=== PATIENT | female | born 1965 | race African-American/Black ===

== ENCOUNTER 2017-03-20 13:00 | Emergency (ER) | payer OTHER ==
[~2017-03-20] VITALS: Ht 167.6 cm; Wt 71.7 kg
[2017-03-20 13:10] VITALS: BP 113/77
== END 2017-03-20 15:15 | disposition home or self-care (01) ==
LOC: ER 13:00
DX: J02.9 Acute pharyngitis, unspecified (principal)

== ENCOUNTER 2020-10-28 21:53 | Emergency (ER) | payer MEDICAID, OTHER ==
[~2020-10-28] VITALS: Ht 165.1 cm; Wt 83.0 kg
[2020-10-28] MEDS ORDERED: TETANUS-DIPTH-ACEL PERTUSSIS 0.5ML SYR Tdap IM ONE (23:00)
[2020-10-28] MEDS ORDERED: ONDANSETRON HCL 4 MG/2 ML VIAL IV ONE (23:00)
[2020-10-28] MEDS ORDERED: MORPHINE SULFATE 4 MG/ML SYR/VIAL IV ONE (23:00)
[2020-10-28] MEDS ORDERED: MORPHINE SULFATE 4 MG/ML SYR/VIAL ONE (23:01)
[2020-10-28] MEDS ORDERED: ONDANSETRON HCL 4 MG/2 ML VIAL ONE (23:01)
[2020-10-28] MEDS ORDERED: SILVER SULFADIAZINE 1 % TOPICAL CREAM 50GM TOP ONE (23:31)
[2020-10-29 00:54] VITALS: BP 141/81
[2020-10-29] MEDS ORDERED: SILVER SULFADIAZINE 1 % TOPICAL CREAM 50GM TOP ONE (01:30)
== END 2020-10-29 01:06 | disposition home or self-care (01) ==
LOC: ER 22:02
DX: S06.9X0A Unspecified intracranial injury without loss of consciousness, initial encounter (principal); X58.XXXA Exposure to other specified factors, initial encounter; Y93.89 Activity, other specified; Y92.89 Other specified places as the place of occurrence of the external cause; Y99.8 Other external cause status
CPT/HCPCS: 16020; 90471; 90715; 96374; 96375; 99284; J2270; J2405; J7030

== ENCOUNTER 2024-10-06 18:23 | Inpatient (IN) | payer MEDICAID ==
[~2024-10-06] VITALS: Ht 167.6 cm; Wt 107.0 kg
[2024-10-06] MEDS: MORPHINE SULFATE INJ 2 MG/ml SYRG IV ONE (18:45)
[2024-10-06] MEDS ORDERED: DexAMETHasone INJECTION 10 MG in D5W 5% 50 ML IV ONE (18:45)
[2024-10-06] MEDS: SODIUM CHLOR 0.9% PF (SALINE LOCK) 10ML VIAL/SYR IV ONE (18:45)
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
[2024-10-06 19:04] VITALS: RESP 15; O2SAT 93
[2024-10-06 19:15] LABS: Basophils # (auto) 0.1 10 ^3/uL (0-0.2); Basophils % (auto) 0.9 % (0.0-2.0); Eosinophils # (auto) 0.2 10 ^3/uL (0-0.8); Eosinophils % (auto) 3.2 % (0.0-7.0); Hematocrit 45.3 % (36.0-46.0); Hemoglobin 15.2 g/dL (12.2-16.2); Lymphocytes % (auto) 33.5 % (10.0-50.0); Mean Corpuscular Hemoglobin 32.1 pg (28.0-32.0); Mean Corpuscular Hgb Conc. 33.6 g/dL (32.0-36.0); Mean Corpuscular Volume 95.6 fL (80.0-100.0); Monocytes # (auto) 0.5 10 ^3/uL (0-1.3); Monocytes % (auto) 7.8 % (0.0-12.0); Neutrophils # (auto) 3.2 10 ^3/uL (1.6-8.6); Neutrophils % (auto) 54.6 % (37.0-80.0); Nucleated Red Blood Cells % 0.1 %; Platelet Count (auto) 177 10^3/uL (140-450); Red Blood Cells 4.74 10^6/uL (4.0-5.20); Red Cell Distribution Width 13.7 % (11.8-14.3); White Blood Cell 5.9 10^3/uL (4.4-10.8)
[2024-10-06 19:22] LABS: Base Excess -2.4 mmol/L (-2.0-3.0)
[2024-10-06] MEDS: ALBUTEROL SULF 2.5 MG/0.5ML(0.5%) NEB SOLN NEB ONE (19:26)
[2024-10-06 19:33] LABS: Alanine Aminotransferase 27 U/L (7-40); Albumin 4.5 g/dL (3.2-4.8); Alkaline Phosphatase 80 U/L (46-116); Anion Gap 7 (5-15); Aspartate Aminotransferase 29 U/L (13-40); BUN/Creatinine Ratio 11.1 (10.0-20.0); Blood Urea Nitrogen 10 mg/dL (9-23); Calcium 9.7 mg/dL (8.7-10.4); Carbon Dioxide 26 mmol/L (20-31); Chloride 106 mmol/L (98-107); Glucose 94 mg/dL (74-106); Sodium 139 mmol/L (136-145)
[2024-10-06 19:34] LABS: Total Protein 7.2 g/dL (5.7-8.2)
[2024-10-06 19:35] LABS: Bilirubin, Total 0.3 mg/dL (0.2-1.0)
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
[2024-10-06] MEDS: DexAMETHasone SOD PHOS 10MG/1ML VIAL INJ IV ONE (19:58)
[2024-10-06] MEDS: ONDANSETRON HCL 4 MG/2 ML VIAL IV ONE (20:27)
[2024-10-06] MEDS: SODIUM CHLORIDE 0.9% 1,000 ML IV SCH (20:30)
[2024-10-06] MEDS ORDERED: ALBUTEROL SULF 2.5 MG/0.5ML(0.5%) NEB SOLN NEB PRN (20:30)
[2024-10-06] MEDS ORDERED: ONDANSETRON HCL 4 MG/2 ML VIAL IV PRN (20:30)
[2024-10-06] MEDS ORDERED: HYDROcodone-ACET 5/325MG TAB PO PRN (20:30)
[2024-10-06] MEDS ORDERED: MORPHINE SULFATE INJ 2 MG/ml SYRG IV PRN ×2 (20:30→22:00)
[2024-10-06] MEDS ORDERED: ACETAMINOPHEN 325 MG TAB PO PRN (20:30)
[2024-10-06] MEDS ORDERED: DOCUSATE SOD 100 MG CAP PO PRN (20:30)
[2024-10-06] MEDS ORDERED: IPRATROPIUM BROM 0.5 MG/2.5ML INH SOL NEB PRN (20:30)
[2024-10-06 20:54] VITALS: BP 108/68; PULSE 79; RESP 18; TEMP 97.9; O2SAT 97
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
[2024-10-06] MEDS ORDERED: NITROGLYCERIN 0.4 MG SL TAB SL PRN (22:00)
[2024-10-06 22:12] VITALS: PULSE 83; RESP 19; O2SAT 98
[2024-10-07] VITALS (9 sets, daily range): BP systolic 105–129; BP diastolic 53–76; PULSE 66–87; RESP 14–81; TEMP 97.2–98.5; O2SAT 93–97
[2024-10-07 08:09] LABS: Basophils # (auto) 0 10 ^3/uL (0-0.2); Basophils % (auto) 0.4 % (0.0-2.0); Eosinophils # (auto) 0 10 ^3/uL (0-0.8); Eosinophils % (auto) 0.5 % (0.0-7.0); Hematocrit 45.3 % (36.0-46.0); Hemoglobin 15.4 g/dL (12.2-16.2); Lymphocytes # (auto) 0.8 10 ^3/uL (0.4-5.4); Lymphocytes % (auto) 12.1 % (10.0-50.0); Mean Corpuscular Hemoglobin 32.4 pg (28.0-32.0); Mean Corpuscular Hgb Conc. 34.1 g/dL (32.0-36.0); Monocytes # (auto) 0.1 10 ^3/uL (0-1.3); Monocytes % (auto) 1.3 % (0.0-12.0); Neutrophils # (auto) 5.5 10 ^3/uL (1.6-8.6); Neutrophils % (auto) 85.7 % (37.0-80.0); Nucleated Red Blood Cells % 0.1 %; Platelet Count (auto) 184 10^3/uL (140-450); Red Blood Cells 4.77 10^6/uL (4.0-5.20); Red Cell Distribution Width 13.5 % (11.8-14.3); White Blood Cell 6.4 10^3/uL (4.4-10.8)
[2024-10-07 08:31] LABS: Alanine Aminotransferase 24 U/L (7-40); Albumin 4.4 g/dL (3.2-4.8); Alkaline Phosphatase 82 U/L (46-116); Anion Gap 6 (5-15); Aspartate Aminotransferase 25 U/L (13-40); BUN/Creatinine Ratio 13.3 (10.0-20.0); Blood Urea Nitrogen 11 mg/dL (9-23); Calcium 9.3 mg/dL (8.7-10.4); Carbon Dioxide 24 mmol/L (20-31); Potassium 4.1 mmol/L (3.5-5.1); Sodium 139 mmol/L (136-145)
[2024-10-07 08:32] LABS: Bilirubin, Total 0.3 mg/dL (0.2-1.0); Total Protein 7.1 g/dL (5.7-8.2)
[2024-10-07 08:35] LABS: Chloride 109 mmol/L (98-107); Glucose 135 mg/dL (74-106)
[2024-10-07] MEDS: FAMOTIDINE (10MG/ML) 2ML VL IV SCH (10:09)
[2024-10-07] MEDS: DexAMETHasone SOD PHOS 10MG/1ML VIAL INJ IV SCH (10:09)
== END 2024-10-07 17:31 | disposition home or self-care (01) | DRG 816 ==
LOC: EDUNIT# 18:23 → EDBD 18:23 → ER 18:23 → TELE 21:46 → TELE-WESTW 10-07 02:17
PROVIDERS: ADMIT Nurse Practitioner Family; ATTEND Nurse Practitioner Family
DX: T59.811A Toxic effect of smoke, accidental (unintentional), initial encounter (principal); F41.9 Anxiety disorder, unspecified; R06.03 Acute respiratory distress; Y92.098 Other place in other non-institutional residence as the place of occurrence of the external cause
CPT/HCPCS: 36415; 36600; 71250; 80053; 82805; 85025; 94640; G0378; J1100; J3490; J7060

== ENCOUNTER 2025-05-07 22:58 | Inpatient (IN) | payer MEDICAID ==
[~2025-05-07] VITALS: Ht 167.6 cm; Wt 114.1 kg
[2025-05-07] MEDS: SODIUM CHLORIDE 0.9% 1,000 ML IV ONE (23:28)
[2025-05-07] MEDS: dilTIAZem 25 MG/5 ML VIAL IV ONE (23:28)
--- NOTE | 2025-05-07 23:47 | ED.PDOC ---
History of Present Illness HPI Comments HPI: This is a 60 year-old female, BIB EMS, for chest pain and possible syncopal episode at home. Per EMS, pt was found on the couch, poor historian, with one episode of emesis prior to arrival. Per EMS, patient was uncooperative on scene, but was able to provide an EKG which showed Afib RVR with HR in the 160s. Per EMS, patient has a 6-pack of beer today. On arrival to the ED, pt is A&OX4, extremely poor historian. Patient denies any PMHx. Pt was seen at the ED yesterday for back pain and was given Toradol Injection IM. No history of atrial fibrillation. No past medical history whatsoever. Patient does not go to the doctor. Past Medical History: Denies Past Surgical History: Denies Social History: Denies ETOH, smoking, and drug use. Medications: Denies Allergies: Coconut HPI: Poor Historian. REVIEW OF SYSTEMS: CONSTITUTIONAL: Denies acute: fever, diaphoresis, chills, HEAD: Denies acute: headache, photophobia Eyes: Denies acute: Double vision, vision loss, eye pain, eye discharge. EARS: Denies acute: tinnitus, hearing loss, ear discharge, ear pain, THROAT: Denies acute: sore throat, swelling, difficulty swallowing , pain with swallowing, change in voice. NECK: Denies acute: neck pain, neck swelling, stiff neck. HEART: Denies acute : LUNGS: Denies acute: SOB, wheezing, cough, hemoptysis ABDOMEN: Denies acute: abdominal pain, diarrhea, melena , hematemesis, hematochezia SKIN: Denies acute: rash, redness, lesions, itchiness. EXTREMITIES: Denies acute: calf pain, numbness, tingling, weakness, denies pain in extremity. Denies acute: Low back pain. Neuro: Denies acute: focal neurological deficit, motor or sensory focal neurological deficit, tremors, seizure like activity, confusion, change in mental status, loss of bowel or bladder function, cauda equina like symptoms. : Denies acute: dysuria, hematuria, flank pain, increase in urinary frequency. PSYCH: Denies acute: hallucination, suicidal ideation, homicidal ideation. FEMALE: Denies acute: abnormal vaginal bleeding, foul odor, unusual discharge. PHYSICAL EXAM: General: ----moderate----acute distress, awake and alert. Head: normocephalic, atraumatic. Neck: supple, trachea is midline, no swelling. Throat: Normal phonation. Eyes:, no erythema, no purulent discharge, no proptosis, no icterus. Heart: Irregular rate and rhythm consistent with atrial fibrillation with RVR, no significant murmur appreciated. Lungs: no apparent respiratory distress, Able to speak in full sentences. No wheezing, no rhonchi, no crackles. No stridors Clear to auscultation bilaterally. Abdomen: non tender to palpation, non distended, soft, no guarding, no rebound, + bowel sounds. Neuro: Awake, Alert, oriented to name, self, situation, follows commands GCS=15. Speech is normal. Skin: no petechia, no purpura, no cyanosis, non-pale, not jaundice. Lower extremities: --no - Pitting edema no deformity, no focal swelling, no calf TTP. Makes eye contact. moves all four extremities. Face: no apparent facial droop. ED COURSE: DISCLAIMER: This medical document was created using an electronic medical record system with voice recognition software and computerized dictation system. Although this document has been carefully reviewed, there might still be some phonetic and typographical errors. Occasional wrong-word or "sound-alike" substitutions may have occurred due to the inherent limitations of voice recognition software. These areas are purely typographical due to imperfections of the software ree yepez and do not reflect any compromise in the patient's medical care. Please read the chart carefully and recognize, using context, where these substitutions have occurred. Chief Complaint: Chest Pain Time Seen by MD: 23:43 Primary Care Provider: [facility] Reviewed Notes: Nurses Notes, Medications, Allergies Allergies: Coded Allergies: NO KNOWN ALLERGIES (Unverified , 10/28/20) Home Meds No Active Prescriptions or Reported Meds Information Source: Patient Mode of Arrival: EMS Severity: Moderate Duration: Since onset Physical Exam General Appearance: Other (per hpi) HEENT: Other (per hpi) Neck: Other (per hpi) Respiratory: Other (per hpi) Cardiovascular: Other (per hpi) Breast Exam: Other (per hpi) Gastrointestinal: Other (per hpi) Genitalia: Other (per hpi) Pelvic: Other (per hpi) Rectal: Other (per hpi) Extremities: Other (per hpi) Neurologic: Other (per hpi) Cerebellar Function: Other (per hpi) Reflexes: Other (per hpi) Skin: Other (per hpi) Lymphatic: Other (per hpi) Was a procedure done? Was a procedure done?: No EKG EKG : Pulse Rate (adult): 75 [place]: Normal Cardiac Rhythm: Afib Block: None Hypertrophy: None ST: Normal Differential Dx Considerations may include: Ddx include but not limitied to gastritis, musculoskeletal pain, radiculopathy, atypical chest pain, dissection, aneurysm, ACS, unstable angina, hiatal hernia, GERD, anxiety, costochondritis, PE, pneumothroax, neoplasm, cardiac ischemia, drug abuse, anemia. X-Ray, Labs, Meds, VS Vital Signs Date Time Temp Pulse Resp B/P (MAP) Pulse Ox O2 Delivery O2 Flow Rate FiO2 05/08/25 02:16 75 05/08/25 02:00 78 21 93/63 (73) 95 05/08/25 02:00 93/63 05/08/25 01:52 75 05/08/25 01:30 105/66 05/08/25 01:30 111 17 105/66 (79) 97 05/08/25 01:00 90/64 05/08/25 01:00 87 16 90/64 (73) 94 05/08/25 00:30 116 19 91/57 (68) 90 05/08/25 00:30 91/57 05/08/25 00:02 161 05/08/25 00:00 141 27 91/64 (73) 90 05/08/25 00:00 85 05/07/25 23:59 131 05/07/25 23:13 149 28 100/67 (78) 92 05/07/25 23:11 97.4 166 26 107/60 97 97.4 05/07/25 23:10 Nasal Cannula* 3 32 05/07/25 23:03 148 05/07/25 00:00 91/64 Lab Test 05/08/25 02:15 05/08/25 01:35 05/08/25 01:23 05/08/25 00:22 Range/Units Troponin I High Sensitivity 478 *H 71 *H </=34 ng/L B-Type Natriuretic Peptide 116.92 0-100 pg/mL Lactic Acid Level 5.0 *H 0.4-2.0 mmol/L Test 05/07/25 23:22 Range/Units White Blood Count 10.6 4.4-10.8 10^3/uL Red Blood Count 4.43 4.0-5.20 10^6/uL Hemoglobin 14.6 12.2-16.2 g/dL Hematocrit 42.6 36.0-46.0 % Mean Corpuscular Volume 96.3 80.0-100.0 fL Mean Corpuscular Hemoglobin 32.9 H 28.0-32.0 pg Mean Corpuscular Hemoglobin Concent 34.2 32.0-36.0 g/dL Red Cell Distribution Width 14.5 H 11.8-14.3 % Platelet Count 189 140-450 10^3/uL Mean Platelet Volume 10.0 6.9-10.8 fL Neutrophils (%) (Auto) 50.2 37.0-80.0 % Lymphocytes (%) (Auto) 42.4 10.0-50.0 % Monocytes (%) (Auto) 6.3 0.0-12.0 % Eosinophils (%) (Auto) 0.7 0.0-7.0 % Basophils (%) (Auto) 0.4 0.0-2.0 % Neutrophils # (Auto) 5.3 1.6-8.6 10 ^3/uL Lymphocytes # (Auto) 4.5 0.4-5.4 10 ^3/uL Monocytes # (Auto) 0.7 0-1.3 10 ^3/uL Eosinophils # (Auto) 0.1 0-0.8 10 ^3/uL Basophils # (Auto) 0 0-0.2 10 ^3/uL Nucleated Red Blood Cells 0.1 % Sodium Level 143 136-145 mmol/L Potassium Level 2.9 L 3.5-5.1 mmol/L Chloride Level 112 H 98-107 mmol/L Carbon Dioxide Level 16 L 20-31 mmol/L Anion Gap 15 5-15 Blood Urea Nitrogen 11 9-23 mg/dL Creatinine 0.93 0.550-1.02 mg/dL Glomerular Filtration Rate Calc 70 >90 mL/min BUN/Creatinine Ratio 11.8 10.0-20.0 Serum Glucose 134 H 74-106 mg/dL Lactic Acid Level 5.3 *H 0.4-2.0 mmol/L Calcium Level 8.5 L 8.7-10.4 mg/dL Magnesium Level 2.0 1.6-2.6 mg/dL Total Bilirubin 0.3 0.2-1.0 mg/dL Aspartate Amino Transferase (AST) 249 H 13-40 U/L Alanine Aminotransferase (ALT) 136 H 7-40 U/L Alkaline Phosphatase 74 46-116 U/L Troponin I High Sensitivity 26 </=34 ng/L B-Type Natriuretic Peptide 206.33 0-100 pg/mL Total Protein 6.8 5.7-8.2 g/dL Albumin 4.1 3.2-4.8 g/dL Plasma/Serum Blood Alcohol 69.0 H <10 mg/dL Current Medications Medications (Trade) Dose Ordered Sig/Deacon Route Start Time Stop Time Status Last Admin Sodium Chloride 1,000 ml @ 1,000 mls/hr Q1H ONCE IV 05/07/25 23:15 05/08/25 00:14 DC 05/07/25 23:28 Diltiazem HCl (Cardizem Injection) 10 mg ONCE ONCE IV 05/07/25 23:15 05/07/25 23:17 DC 05/07/25 23:28 Diltiazem HCl 125 ml @ 5 mls/hr Q24H ONCE IV 05/07/25 23:45 05/08/25 23:44 05/07/25 00:00 Ondansetron HCl (Zofran) 4 mg ONCE ONCE IV 05/07/25 23:45 05/07/25 23:46 DC 05/08/25 00:06 Sodium Chloride 1,000 ml @ 1,000 mls/hr Q1H ONCE IV 05/08/25 00:15 05/08/25 01:14 DC 05/08/25 00:15 Potassium Chloride (Klor-Con Tablet) 40 meq ONCE ONCE PO 05/08/25 01:00 05/08/25 01:17 DC 05/08/25 01:27 Aspirin (Ecotrin Enteric Coated Tablet) 325 mg ONCE ONCE PO 05/08/25 01:15 05/08/25 01:17 DC 05/08/25 01:27 [facility] [id number] [facility] [address] Ph: [phone] DIAGNOSTIC IMAGING Diagnostic Imaging Report : [id number] Signed PATIENT: REX HERNANDEZ LACCT: [id number] UNIT: [id number] : 1965 LOC: ER ROOM / BED: / AGE / SEX: 60 / F ADM STATUS: REG ER SERVICE 2350 ORDERING PHYSICIAN: MARQUIS SPENCER DO PROCEDURE(s): CXRP - CHEST PORTABLE REASON: cp ORDER NUMBER(s): [id number], ACCESSION NUMBER(s): [id number] CHEST RADIOGRAPH Indication: cp Technique: Single frontal view of the chest was obtained COMPARISON: CT CHEST WITHOUT CONTRAST on DOS: 10/06/24 FINDINGS: Lines and Tubes: None Lungs: Diffuse increased prominence of the pulmonary vasculature and interstitium. Mild bibasilar atelectasis. No evidence of focal consolidation. Pleura: No effusion. No pneumothorax. Cardiomediastinal contours: Unremarkable Bones: Unremarkable IMPRESSION: 1. Congestive-type pattern. Images Reviewed?: Images reviewed and evaluated by me Time of 1ST Reevaluation: 23:46 Reevaluation 1ST: Unchanged Time of 2ND Reevaluation: 01:21 Reevaluation 2ND: Improved Patient Education/Counseling: Diagnosis, Treatment Family Education/Counseling: No Family Present Medical Screening: No EMC Exist At This Time Comments MDM: patient presented with the above HPI.--chest pain/possible syncope/atrial fibrillation with RVR---workup was initiated. patient was found with the above mentioned diagnosis. the following medications were ordered: please refer to order lists of meds and tests obtained by myself Dr. Spencer. Patient ED course and VS have been stabilized. Patient has been reassessed in the ED and remained in a stable condition. Pertinent incidental findings were discussed with the patient and/or family. Patient/family voices understanding and is agreeable with plan. Patient has been observed in the ED adequate length of time to insure improvement/stability. Escalation of care considered: Consideration of escalation to observation or admission Patient was ADMITTED to the medicine team for further evaluation and treatment of their presentation. All the reports of any imaging studies that were ordered by myself were reviewed by myself. SEPSIS Sepsis Screen Date sepsis recognized/suspect: May 07, 2025 Time Sepsis recognized/suspect: 2299 Recent Procedure: No On Antibiotic Therapy: No Respiratory Rate >20: Yes Heart Rate >90: Yes Temp<36 C (96.8 F) or >38.3 C: No SBP <90 or MAP <65 mmHG: No New Acute Mental Status Change: No Is the patient on CPAP, BIPAP,: No Physician Orders Electrocardigram (05/07/25 23:09) Electrocardigram (05/08/25 02:09) Human Resources Assistant (05/07/25 ) Diltiazem 125mg/125ml Bag Kit (Cardizem) (05/07/25 23:45) Chest Portable (05/07/25 23:50) Vital Signs Date Time Temp Pulse Resp B/P (MAP) Pulse Ox O2 Delivery O2 Flow Rate FiO2 05/08/25 02:16 75 05/08/25 02:00 78 21 93/63 (73) 95 05/08/25 02:00 93/63 05/08/25 01:52 75 05/08/25 01:30 105/66 05/08/25 01:30 111 17 105/66 (79) 97 05/08/25 01:00 90/64 05/08/25 01:00 87 16 90/64 (73) 94 05/08/25 00:30 116 19 91/57 (68) 90 05/08/25 00:30 91/57 05/08/25 00:02 161 05/08/25 00:00 141 27 91/64 (73) 90 05/08/25 00:00 85 05/07/25 23:59 131 05/07/25 23:13 149 28 100/67 (78) 92 05/07/25 23:11 97.4 166 26 107/60 97 97.4 05/07/25 23:10 Nasal Cannula* 3 32 05/07/25 23:03 148 05/07/25 00:00 91/64 Laboratory Tests Test 05/07/25 23:22 05/08/25 01:23 Lactic Acid Level 5.3 mmol/L (0.4-2.0) *H 5.0 mmol/L (0.4-2.0) *H White Blood Count 10.6 10^3/uL (4.4-10.8) Medications Medications Dose Ordered Sig/Deacon Route Start Time Stop Time Status Last Admin Dose Admin Aspirin 325 mg ONCE ONCE PO 05/08/25 01:15 05/08/25 01:17 DC 05/08/25 01:27 Diltiazem HCl 10 mg ONCE ONCE IV 05/07/25 23:15 05/07/25 23:17 DC 05/07/25 23:28 Diltiazem HCl 125 ml @ 5 mls/hr Q24H ONCE IV 05/07/25 23:45 05/08/25 23:44 05/07/25 00:00 Ondansetron HCl 4 mg ONCE ONCE IV 05/07/25 23:45 05/07/25 23:46 FL 05/08/25 00:06 Potassium Chloride 40 meq ONCE ONCE PO 05/08/25 01:00 05/08/25 01:17 DC 05/08/25 01:27 Sodium Chloride 1,000 ml @ 1,000 mls/hr Q1H ONCE IV 05/08/25 00:15 05/08/25 01:14 DC 05/08/25 00:15 Sodium Chloride 1,000 ml @ 1,000 mls/hr Q1H ONCE IV 05/07/25 23:15 05/08/25 00:14 FL 05/07/25 23:28 Departure 1 Departure Time of Disposition: 00:42 Impression: Primary Impression: Chest pain Additional Impressions: Atrial fibrillation with RVR Elevated lactic acid level Elevated LFTs Elevated troponin Hypokalemia Alcohol abuse Disposition: 09 ADMITTED INPATIENT Admit to: Tele Condition: Guarded e-Prescriptions No Active Prescriptions or Reported Meds Discharged With: Self Critical Care Note Critical Care Time?: Yes (1 hr-critical care time only) I personally scribed for MARQUIS SPENCER DO ([email or web address]) on 05/07/25 at 23:47. Electronically submitted by Kiara Monique ([employer]). I personally scribed for MARQUIS SPENCER DO ([email or web address]) on 05/07/25 at 23:47. Electronically submitted by Kiara Monique ([employer]). I personally scribed for MARQUIS SPENCER DO ([email or web address]) on 05/08/25 at 00:02. Electronically submitted by Kiara Monique ([employer]). I personally scribed for MARQUIS SPENCER DO ([facility]) on 05/08/25 at 00:39. Electronically submitted by Kiara Monique ([email or web address]). I personally scribed for MARQUIS SPENCER DO ([email or web address]) on 05/08/25 at 01:26. Electronically submitted by Kiara Monique ([employer]). I personally scribed for MARQUIS SPENCER DO ([email or web address]) on 05/08/25 at 02:16. Electronically submitted by Kiara Monique ([employer]). I personally scribed for MARQUIS SPENCER DO ([email or web address]) on 05/08/25 at 03:41. Electronically submitted by Kiara Monique ([employer]). MARQUIS SPENCER DO May 07, 2025 23:47
[2025-05-07 23:54] LABS: Hematocrit 42.6 % (36.0-46.0); Hemoglobin 14.6 g/dL (12.2-16.2); Mean Corpuscular Hemoglobin 32.9 pg (28.0-32.0); Mean Corpuscular Volume 96.3 fL (80.0-100.0); Nucleated Red Blood Cells % 0.1 %
[2025-05-08 00:03] LABS: Albumin 4.1 g/dL (3.2-4.8); Alkaline Phosphatase 74 U/L (46-116); Anion Gap 15 (5-15); BUN/Creatinine Ratio 11.8 (10.0-20.0); Blood Urea Nitrogen 11 mg/dL (9-23); Magnesium 2.0 mg/dL (1.6-2.6); Sodium 143 mmol/L (136-145); Total Protein 6.8 g/dL (5.7-8.2)
[2025-05-08 00:04] LABS: Bilirubin, Total 0.3 mg/dL (0.2-1.0)
[2025-05-08] MEDS: ONDANSETRON HCL 4 MG/2 ML VIAL IV ONE (00:06)
[2025-05-08 00:07] LABS: Lactic Acid w/Reflex 5.3 mmol/L (0.4-2.0)
[2025-05-08 00:10] LABS: Alanine Aminotransferase 136 U/L (7-40); Calcium 8.5 mg/dL (8.7-10.4); Carbon Dioxide 16 mmol/L (20-31); Chloride 112 mmol/L (98-107); Glucose 134 mg/dL (74-106); Potassium 2.9 mmol/L (3.5-5.1)
[2025-05-08] MEDS: SODIUM CHLORIDE 0.9% 1,000 ML IV ONE (00:15)
--- NOTE | 2025-05-08 00:25 | DVH ---
CHEST RADIOGRAPH Indication: cp Technique: Single frontal view of the chest was obtained COMPARISON: CT CHEST WITHOUT CONTRAST on DOS: 10/06/24 FINDINGS: Lines and Tubes: None Lungs: Diffuse increased prominence of the pulmonary vasculature and interstitium. Mild bibasilar ate lectasis. No evidence of focal consolidation. Pleura: No effusion. No pneumothorax. Cardiomediastinal contours: Unremarkable Bones: Unremarkable IMPRESSION: 1. Congestive-type pattern.
[2025-05-08] MEDS: POTASSIUM CHL 20 Meq TABLET PO ONE (01:27)
[2025-05-08] MEDS: ASPirin-EC 325mg tab PO ONE (01:27)
--- NOTE | 2025-05-08 01:54 | ECG ---
[facility] Test Date: 2025-05-08 Test Time: 01:52:42 Pat Name: REX HERNANDEZ Department: Room: 0214T Gender: F City Supervisor: LENNY : 1965 Requested By: EMERGENCY EMERGENCY Order Number: [id number] Reading MD: Jaun Pagan Measurements Intervals [place] Rate: 75 P: 0 ME: 0 QRS: 50 QRSD: 92 T: 15 QT: 407 QTc: 455 Interpretive Statements Atrial fibrillation RSR' in V1 or V2, right VCD or RVH Left ventricular hypertrophy Electronically Signed On 05-14-2025 19:06:37 PDT by Jaun Pagan Please click the below link to view image of tracing.
[2025-05-08] MEDS ORDERED: ONDANSETRON HCL 4 MG/2 ML VIAL IV PRN (02:30)
[2025-05-08] MEDS ORDERED: MORPHINE SULFATE INJ 2 MG/ml SYRG IV PRN (02:30)
[2025-05-08] MEDS ORDERED: NITROGLYCERIN 0.4 MG SL TAB SL PRN (02:30)
[2025-05-08 03:24] LABS: Amphetamine Screen, Urine Neg (NEGATIVE); Barbiturate Scree,Urine Neg (NEGATIVE); Benzodiazephine Screen, Urine Neg (NEGATIVE); Cannabinoid Screen, Urine Pos (NEGATIVE); Cocaine Screen, Urine Neg (NEGATIVE); Opiate Scree,Urine Neg (NEGATIVE); Phencyclidine Screen, Urine Neg (NEGATIVE)
[2025-05-08 03:26] LABS: Urine Protein, UAD Negative (Negative)
--- NOTE | 2025-05-08 05:13 | DVHHP2 ---
History of Present Illness Reason for Visit: Chest pain History of Present Illness 60-year-old female presents for evaluation of chest pain. Patient reports having a possible syncopal episode at home witnessed by her family. She states that subsequently she developed chest pain. On arrival patient was noted to be in AFib with RVR and was started on diltiazem drip. Currently rate controlled. Denies shortness or breath. No headache or blurred vision. Past Medical History Denies Past Surgical History Denies Family History Noncontributory Smoke: No ALCOHOL: occassional Drugs: None Lives: with Family Review of Systems Review of Systems Review of systems are currently negative otherwise addressed in HPI. Allergies: Coded Allergies: NO KNOWN ALLERGIES (Unverified , 10/28/20) Medications Current Medications Medications Dose Ordered Sig/Deacon Route Start Time Stop Time Status Last Admin Dose Admin Diltiazem HCl 100 ml @ 5 mls/hr Q20H IV 05/08/25 02:30 UNV Aspirin 162 mg DAILY PO 05/08/25 10:00 Atorvastatin Calcium 10 mg HS PO 05/08/25 22:00 Ondansetron HCl 4 mg Q4HP PRN IV 05/08/25 02:30 Enoxaparin Sodium 40 mg DAILY SC 05/08/25 10:00 Acetaminophen 650 mg Q6HP PRN PO 05/08/25 02:30 Nitroglycerin 0.4 mg Q5MINP PRN SL 05/08/25 02:30 Morphine Sulfate 2 mg Q30M PRN IV 05/08/25 02:30 Ceftriaxone Sodium 50 ml @ 100 mls/hr DAILY@09 IV 05/08/25 04:30 05/08/25 04:42 100 MLS/HR Exam Vital Signs Vital Signs Date Time Temp Pulse Resp B/P (MAP) Pulse Ox O2 Delivery O2 Flow Rate FiO2 05/08/25 04:00 74 05/08/25 03:00 105/69 05/08/25 03:00 22 94 05/07/25 23:11 97.4 97.4 05/07/25 23:10 Nasal Cannula* 3 32 Exam Gen: 60-year-old female in mild distress Skin: Warm, dry, normal color and texture, no rash. HEENT: Normocephalic atraumatic, mucous membranes moist and pink. Neck: Cervical and supraclavicular nodes normal without enlargement, trachea is midline, thyroid gland is normal without masses. Pulmonary: Clear to auscultation and percussion bilaterally. Cardiac: Irregular rhythm Abdomen: Soft, nontender, nondistended, bowel sounds present all 4 quadrants, no guarding, no rigidity, no organomegaly. Extremities: No cyanosis, clubbing, no edema Neuro: Cranial nerves II through XII grossly intact, normal affect and speech, no focal motor deficits. Labs/Xrays ORDERING PHYSICIAN: MARQUIS SPENCER DO PROCEDURE(s): CXRP - CHEST PORTABLE REASON: cp ORDER NUMBER(s): [id number], ACCESSION NUMBER(s): [id number] CHEST RADIOGRAPH Indication: cp Technique: Single frontal view of the chest was obtained COMPARISON: CT CHEST WITHOUT CONTRAST on DOS: 10/06/24 FINDINGS: Lines and Tubes: None Lungs: Diffuse increased prominence of the pulmonary vasculature and interstitium. Mild bibasilar atelectasis. No evidence of focal consolidation. Pleura: No effusion. No pneumothorax. Cardiomediastinal contours: Unremarkable Bones: Unremarkable IMPRESSION: 1. Congestive-type pattern. Labs Test 05/08/25 02:49 05/08/25 02:15 05/08/25 01:35 05/08/25 01:23 Range/Units Urine Color Light-yellow Yellow Urine Clarity Turbid H Clear Urine pH 5.0 5.0-9.0 Urine Specific [place] 1.021 1.001-1.035 Urine Protein Negative Negative Urine Ketones Trace Negative Urine Blood Negative Negative /uL Urine Nitrite Negative Negative Urine Bilirubin Negative Negative Urine Urobilinogen Normal Negative mg/dL Urine Leukocyte Esterase 2+ Negative /uL Urine RBC None seen 0 - 4 /hpf Urine Microscopic WBC 4 0-5 /HPF Urine Squamous Epithelial Cells Few <5 /hpf Urine Bacteria None seen None Seen /hpf Urine Mucus Few None Seen Urine Glucose Normal Normal mg/dL Urine Opiates Screen Neg NEGATIVE Urine Fentanyl Screen Neg NEGATIVE Urine Barbiturates Screen Neg NEGATIVE Urine Phencyclidine Screen Neg NEGATIVE Urine Amphetamines Screen Neg NEGATIVE Urine Benzodiazepines Screen Neg NEGATIVE Urine Cocaine Screen Neg NEGATIVE Urine Cannabinoids Screen Pos NEGATIVE Troponin I High Sensitivity 478 *H </=34 ng/L B-Type Natriuretic Peptide 116.92 0-100 pg/mL Lactic Acid Level 5.0 *H 0.4-2.0 mmol/L Test 05/07/25 23:22 Range/Units White Blood Count 10.6 4.4-10.8 10^3/uL Red Blood Count 4.43 4.0-5.20 10^6/uL Hemoglobin 14.6 12.2-16.2 g/dL Hematocrit 42.6 36.0-46.0 % Mean Corpuscular Volume 96.3 80.0-100.0 fL Mean Corpuscular Hemoglobin 32.9 H 28.0-32.0 pg Mean Corpuscular Hemoglobin Concent 34.2 32.0-36.0 g/dL Red Cell Distribution Width 14.5 H 11.8-14.3 % Platelet Count 189 140-450 10^3/uL Mean Platelet Volume 10.0 6.9-10.8 fL Neutrophils (%) (Auto) 50.2 37.0-80.0 % Lymphocytes (%) (Auto) 42.4 10.0-50.0 % Monocytes (%) (Auto) 6.3 0.0-12.0 % Eosinophils (%) (Auto) 0.7 0.0-7.0 % Basophils (%) (Auto) 0.4 0.0-2.0 % Neutrophils # (Auto) 5.3 1.6-8.6 10 ^3/uL Lymphocytes # (Auto) 4.5 0.4-5.4 10 ^3/uL Monocytes # (Auto) 0.7 0-1.3 10 ^3/uL Eosinophils # (Auto) 0.1 0-0.8 10 ^3/uL Basophils # (Auto) 0 0-0.2 10 ^3/uL Nucleated Red Blood Cells 0.1 % Sodium Level 143 136-145 mmol/L Potassium Level 2.9 L 3.5-5.1 mmol/L Chloride Level 112 H 98-107 mmol/L Carbon Dioxide Level 16 L 20-31 mmol/L Anion Gap 15 5-15 Blood Urea Nitrogen 11 9-23 mg/dL Creatinine 0.93 0.550-1.02 mg/dL Glomerular Filtration Rate Calc 70 >90 mL/min BUN/Creatinine Ratio 11.8 10.0-20.0 Serum Glucose 134 H 74-106 mg/dL Calcium Level 8.5 L 8.7-10.4 mg/dL Magnesium Level 2.0 1.6-2.6 mg/dL Total Bilirubin 0.3 0.2-1.0 mg/dL Aspartate Amino Transferase (AST) 249 H 13-40 U/L Alanine Aminotransferase (ALT) 136 H 7-40 U/L Alkaline Phosphatase 74 46-116 U/L Total Protein 6.8 5.7-8.2 g/dL Albumin 4.1 3.2-4.8 g/dL Plasma/Serum Blood Alcohol 69.0 H <10 mg/dL SEPSIS Sepsis Screen Date sepsis recognized/suspect: May 08, 2025 Time Sepsis recognized/suspect: 0000 Recent Procedure: No On Antibiotic Therapy: No Respiratory Rate >20: No Heart Rate >90: Yes Temp<36 C (96.8 F) or >38.3 C: No SBP <90 or MAP <65 mmHG: No New Acute Mental Status Change: No Is the patient on CPAP, BIPAP,: No Physician Orders Electrocardigram (05/07/25 23:09) Electrocardigram (05/08/25 02:09) Tavern Operator (05/07/25 ) Diltiazem 125mg/125ml Bag Kit (Cardizem) (05/07/25 23:45) Chest Portable (05/07/25 23:50) Diltiazem 125mg/125ml Bag Kit (Cardizem) (05/08/25 02:30) * Cardiology Consult (05/08/25 02:25) Aspirin Tablet (05/08/25 10:00) Atorvastatin (Lipitor) (05/08/25 22:00) Basic Metabolic Panel (05/09/25 04:00) Admit (05/08/25 02:25) Ondansetron Hcl (Zofran) (05/08/25 02:30) Enoxaparin Sodium (Lovenox) (05/08/25 10:00) Cardiac Diet-2gna,Lofat,Lochol (05/08/25 Breakfast) Echo 2d Mode Cardiac Dop (05/08/25 02:25) Condition: Critical (05/08/25 02:25) Acetaminophen Tablet (Tylenol Tablet) (05/08/25 02:30) Bedrest With Bathroom Privileg (05/08/25 02:25) Nitroglycerin Sublingual (Ntrostat Subli (05/08/25 02:30) Morphine Sulfate Injection (05/08/25 02:30) Stat Ekg For Chest Pain (05/08/25 02:25) Notify Of Changes From Base (05/08/25 02:25) Broomcorn Scraper For 24 Hours (05/08/25 02:25) Emergency Dysrhythmia Protocol (05/08/25 02:25) Rhythm Strips Once Every Shift (05/08/25 02:25) Oxygen By Nasal Cannula (05/08/25 02:25) Ceftriaxone 1gm/50ml (Rocephin) (05/08/25 04:30) Blood Culture (05/08/25 04:18) Vital Signs Date Time Temp Pulse Resp B/P (MAP) Pulse Ox O2 Delivery O2 Flow Rate FiO2 05/08/25 04:00 74 05/08/25 03:00 105/69 05/08/25 03:00 76 22 105/69 (81) 94 05/08/25 02:30 94/56 05/08/25 02:30 81 17 94/56 (69) 94 05/08/25 02:16 75 05/08/25 02:00 78 21 93/63 (73) 95 05/08/25 02:00 93/63 05/08/25 01:52 75 05/08/25 01:30 105/66 05/08/25 01:30 111 17 105/66 (79) 97 05/08/25 01:00 90/64 05/08/25 01:00 87 16 90/64 (73) 94 05/08/25 00:30 116 19 91/57 (68) 90 05/08/25 00:30 91/57 05/08/25 00:02 161 05/08/25 00:00 141 27 91/64 (73) 90 05/08/25 00:00 85 05/07/25 23:59 131 05/07/25 23:13 149 28 100/67 (78) 92 05/07/25 23:11 97.4 166 26 107/60 97 97.4 05/07/25 23:10 Nasal Cannula* 3 32 05/07/25 23:03 148 Laboratory Tests Test 05/07/25 23:22 05/08/25 01:23 Lactic Acid Level 5.3 mmol/L (0.4-2.0) *H 5.0 mmol/L (0.4-2.0) *H White Blood Count 10.6 10^3/uL (4.4-10.8) Medications Medications Dose Ordered Sig/Deacon Route Start Time Stop Time Status Last Admin Dose Admin Aspirin 325 mg ONCE ONCE PO 05/08/25 01:15 05/08/25 01:17 DC 05/08/25 01:27 325 MG Ceftriaxone Sodium 50 ml @ 100 mls/hr DAILY@09 IV 05/08/25 04:30 05/08/25 04:42 100 MLS/HR Diltiazem HCl 10 mg ONCE ONCE IV 05/07/25 23:15 05/07/25 23:17 DC 05/07/25 23:28 10 MG Diltiazem HCl 125 ml @ 5 mls/hr Q24H ONCE IV 05/07/25 23:45 05/08/25 23:44 05/07/25 00:00 5 MLS/HR Ondansetron HCl 4 mg ONCE ONCE IV 05/07/25 23:45 05/07/25 23:46 DC 05/08/25 00:06 4 MG Potassium Chloride 40 meq ONCE ONCE PO 05/08/25 01:00 05/08/25 01:17 DC 05/08/25 01:27 40 MEQ Sodium Chloride 1,000 ml @ 1,000 mls/hr Q1H ONCE IV 05/08/25 00:15 05/08/25 01:14 DC 05/08/25 00:15 1,000 MLS/HR Sodium Chloride 1,000 ml @ 1,000 mls/hr Q1H ONCE IV 05/07/25 23:15 05/08/25 00:14 DC 05/07/25 23:28 1,000 MLS/HR Assessment/Plan Assessment/Plan Assessment AFib with RVR Elevated troponin Alcohol intoxication Plan Admit the patient to [facility] to the hospitalist Andrade morrison continue Cardiology consultation Echocardiogram pending Continue treatment per orders Total critical care time excluding procedures performed this 50 minutes. Plan discussed with: Patient My Orders Orders - SHRUTHI CHEW Procedure Category Date Status Time Diltiazem 125mg/125ml PHA 05/08/25 Pending Bag Kit (Cardizem) 02:30 * Cardiology Consult CONS 05/08/25 Transmitted 02:25 Aspirin Tablet PHA 05/08/25 In Process 10:00 Atorvastatin (Lipitor) PHA 05/08/25 In Process 22:00 Basic Metabolic Panel LAB 05/09/25 Verified 04:00 Admit ADMIT 05/08/25 Transmitted 02:25 Ondansetron Hcl PHA 05/08/25 In Process (Zofran) 02:30 Enoxaparin Sodium [facility] 05/08/25 In Process (Lovenox) 10:00 Cardiac DIET 05/08/25 Transmitted Diet-2gna,Lofat,Lochol Breakfast Echo 2d Mode Cardiac US 05/08/25 Logged DOP 02:25 Condition: Critical [facility] 05/08/25 In Process 02:25 Acetaminophen Tablet [facility] 05/08/25 In Process (Tylenol Tablet) 02:30 Bedrest With Bathroom [facility] 05/08/25 In Process Privileg 02:25 Nitroglycerin [facility] 05/08/25 In Process Sublingual (Ntrostat 02:30 Morphine Sulfate [facility] 05/08/25 In Process Injection 02:30 Stat Ekg For Chest [facility] 05/08/25 In Process Pain 02:25 Notify Of Changes [facility] 05/08/25 In Process From Base 02:25 Broomcorn Scraper For [facility] 05/08/25 In Process 24 Hours 02:25 Emergency Dysrhythmia [facility] 05/08/25 In Process Protocol 02:25 Rhythm Strips Once [facility] 05/08/25 In Process Every Shift 02:25 Oxygen By Nasal RT 05/08/25 Transmitted Cannula 02:25 Ceftriaxone 1gm/50ml [facility] 05/08/25 In Process (Rocephin) 04:30 Blood Culture JAM[facility] 05/08/25 Uncollected 04:18 Date of Service: May 08, 2025 Billing Provider: SHRUTHI CHEW Common Visit Codes: [id number] CARE 30-74 MIN SHRUTHI CHEW May 08, 2025 05:13
--- NOTE | 2025-05-08 05:33 | ECG ---
[facility] Test Date: 2025-05-07 Test Time: 23:03:45 Pat Name: REX HERNANDEZ Department: Room: 0214T Gender: F Hand Quilter: LENNY : 1965 Requested By: EMERGENCY EMERGENCY Order Number: [id number] Reading MD: Jaun Pagan Measurements Intervals [place] Rate: 148 P: 0 MN: 0 QRS: 35 QRSD: 86 T: 259 QT: 270 QTc: 424 Interpretive Statements Atrial fibrillation Abnormal R-wave progression, early transition Repol abnrm suggests ischemia, diffuse leads Electronically Signed On 05-14-2025 19:06:25 PDT by Jaun Pagan Please click the below link to view image of tracing.
[2025-05-08 06:09] LABS: Triglycerides 116 mg/dL (< 150)
[2025-05-08 06:27] VITALS: PULSE 69; RESP 22; O2SAT 91
[2025-05-08 06:37] LABS: Cholesterol 254 mg/dL (< 200); HDL Cholesterol 63 mg/dL (40-59)
[2025-05-08 08:21] VITALS: PULSE 71; O2SAT 92
--- NOTE | 2025-05-08 09:37 | ECG ---
[facility] Test Date: 2025-05-08 Test Time: 09:24:25 Pat Name: REX HERNANDEZ Department: Room: 0214T Gender: F Supervisor Beater Room: TILA : 1965 Requested By: EMERGENCY EMERGENCY Order Number: [id number] Reading MD: Jaun Pagan Measurements Intervals [place] Rate: 61 P: 0 AR: 0 QRS: 42 QRSD: 84 T: 18 QT: 440 QTc: 444 Interpretive Statements Atrial fibrillation RSR' in V1 or V2, probably normal variant Probable LVH with secondary repol abnrm Electronically Signed On 05-14-2025 19:08:31 PDT by Jaun Pagan Please click the below link to view image of tracing.
[2025-05-08] MEDS: ENOXAPARIN SOD 40 MG/0.4 ML SYRINGE SC SCH (10:00)
--- NOTE | 2025-05-08 10:50 | DVHINCON2 ---
Date Seen: May 08, 2025 Referring Physician LYNDSEY Felipe Reason for Consultation AFib RVR History of Present Illness This is a 60-year-old female patient who presents to emergency room with chief complaint of syncopal episode. The patient reports sitting on her couch speaking with her granddaughter when suddenly she became nonverbal. The patient's granddaughter who was at bedside states the patient stopped answering her questions and was giving her a "blank stare" before she then lost consciousness. The patient's granddaughter reports that this loss of consciousness lasted approximately 60 seconds and the patient did not lose pulse or stop breathing. When the patient regained consciousness, she noticed she had urinary incontinence. EMS was called and the patient was brought to emergency room for further evaluation. Initial twelve lead electrocardiogram reveals atrial fibrillation with a rapid ventricular response. The emergency room provider initiated the patient on a diltiazem drip. At time of assessment, the patient is still in atrial fibrillation now with controlled rate. Initial troponin level of 26ng/L with up trend and current peak level at 487ng/L. The pa tient denies any cardiac symptoms at time of assessment. Significant past medical history includes dyslipidemia, vitamin-D deficiency, tobacco use, marijuana use, and alcohol use. Past Medical History Past medical history reviewed. No other significant than mentioned above. Past Surgical History Bilateral tubal ligation Right oophorectomy Family History: Patient reports no known family medical history. Family History Family history reviewed. Social History Patient has a 46 pack-year history Admits to occasional marijuana use Patient admits to drinking a six pack of beer everyday Allergies: Coded Allergies: NO KNOWN ALLERGIES (Unverified , 10/28/20) Home Meds No Active Prescriptions or Reported Meds Home Meds Denies taking any prescribed medications Current Medications Current Medications Medications (Trade) Dose Ordered Sig/Deacon Route PRN Reason Start Time Stop Time Status Last Admin Diltiazem HCl 100 ml @ 5 mls/hr Q20H IV 05/08/25 02:30 05/08/25 09:53 DC Aspirin 162 mg DAILY PO 05/08/25 10:00 05/08/25 09:59 Atorvastatin Calcium (Lipitor) 10 mg HS PO 05/08/25 22:00 Ondansetron HCl (Zofran) 4 mg Q4HP PRN IV NAUSEA / VOMITING 05/08/25 02:30 Enoxaparin Sodium (Lovenox) 40 mg DAILY SC 05/08/25 10:00 05/08/25 10:00 Acetaminophen (Tylenol Tablet) 650 mg Q6HP PRN PO PAIN SCALE 1-3 OR TEMP>100.4 05/08/25 02:30 Nitroglycerin (Ntrostat Sublingual) 0.4 mg Q5MINP PRN SL FOR CHEST PAIN 05/08/25 02:30 Morphine Sulfate 2 mg Q30M PRN IV FOR CHEST PAIN 05/08/25 02:30 Ceftriaxone Sodium 50 ml @ 100 mls/hr DAILY@09 IV 05/08/25 04:30 05/08/25 10:00 Review of Systems Constitutional: No symptom reported Ears, Nose, & Throat: No symptom reported Eyes: No symptom reported Neurological: Syncope Pulmonary/Respiratory: No symptoms reported Cardiovascular: No symptom reported Gastrointestinal: No symptom reported Genitourinary: No symptom reported Musculoskeletal: No symptom reported Skin: No symptom reported Psychiatric: No symptom reported Endocrine: No symptom reported Hematologic/Lymphatic: No symptom reported Vital Signs Vital Signs Date Time Temp Pulse Resp B/P (MAP) Pulse Ox O2 Delivery O2 Flow Rate FiO2 05/08/25 09:24 61 05/08/25 08:21 92 Room Air* 0 21 05/08/25 08:20 23 104/66 (79) 05/08/25 06:27 98.7 98.7 Physical Exam General Appearance: Cooperative. Well-developed. Well-nourished. No acute distress. Pulmonary/Respiratory: Clear, bilateral breaths sounds. Cardiovascular/Chest: Irregularly irregular and rhythm. Systolic murmur grade IV/VII Peripheral Pulses: 2+ Radial (R). 2+ Radial (L). 2+ Pedal (R). 2+ Pedal (L) Abdominal Exam: Normal bowel sounds. Ankle Exam: Negative ankle edema Lower extremities: Negative lower extremity edema Neuro/Mental Status: A/OX4, coherent. Thoughts/Psych: Normal thought pattern. Appropriate mood and affect. Good judgment and insight. Appearance: No acute distress. Skin Exam: Normal inspection. Normal color. Warm and dry. Labs/Diagnostic Data Labs Test 05/08/25 02:49 05/08/25 02:15 05/08/25 01:35 05/08/25 01:23 Range/Units Urine Color Light-yellow Yellow Urine Clarity Turbid H Clear Urine pH 5.0 5.0-9.0 Urine Specific [place] 1.021 1.001-1.035 Urine Protein Negative Negative Urine Ketones Trace Negative Urine Blood Negative Negative /uL Urine Nitrite Negative Negative Urine Bilirubin Negative Negative Urine Urobilinogen Normal Negative mg/dL Urine Leukocyte Esterase 2+ Negative /uL Urine RBC None seen 0 - 4 /hpf Urine Microscopic WBC 4 0-5 /HPF Urine Squamous Epithelial Cells Few <5 /hpf Urine Bacteria None seen None Seen /hpf Urine Mucus Few None Seen Urine Glucose Normal Normal mg/dL Urine Opiates Screen Neg NEGATIVE Urine Fentanyl Screen Neg NEGATIVE Urine Barbiturates Screen Neg NEGATIVE Urine Phencyclidine Screen Neg NEGATIVE Urine Amphetamines Screen Neg NEGATIVE Urine Benzodiazepines Screen Neg NEGATIVE Urine Cocaine Screen Neg NEGATIVE Urine Cannabinoids Screen Pos NEGATIVE Troponin I High Sensitivity 478 *H </=34 ng/L Triglycerides Level 116 < 150 mg/dL Cholesterol Level 254 H < 200 mg/dL LDL Cholesterol 170 H < 100 mg/dL HDL Cholesterol 63 H 40-59 mg/dL Thyroid Stimulating Hormone (TSH) 1.63 0.55-4.78 uIU/mL B-Type Natriuretic Peptide 116.92 0-100 pg/mL Lactic Acid Level 5.0 *H 0.4-2.0 mmol/L Test 05/07/25 23:22 Range/Units White Blood Count 10.6 4.4-10.8 10^3/uL Red Blood Count 4.43 4.0-5.20 10^6/uL Hemoglobin 14.6 12.2-16.2 g/dL Hematocrit 42.6 36.0-46.0 % Mean Corpuscular Volume 96.3 80.0-100.0 fL Mean Corpuscular Hemoglobin 32.9 H 28.0-32.0 pg Mean Corpuscular Hemoglobin Concent 34.2 32.0-36.0 g/dL Red Cell Distribution Width 14.5 H 11.8-14.3 % Platelet Count 189 140-450 10^3/uL Mean Platelet Volume 10.0 6.9-10.8 fL Neutrophils (%) (Auto) 50.2 37.0-80.0 % Lymphocytes (%) (Auto) 42.4 10.0-50.0 % Monocytes (%) (Auto) 6.3 0.0-12.0 % Eosinophils (%) (Auto) 0.7 0.0-7.0 % Basophils (%) (Auto) 0.4 0.0-2.0 % Neutrophils # (Auto) 5.3 1.6-8.6 10 ^3/uL Lymphocytes # (Auto) 4.5 0.4-5.4 10 ^3/uL Monocytes # (Auto) 0.7 0-1.3 10 ^3/uL Eosinophils # (Auto) 0.1 0-0.8 10 ^3/uL Basophils # (Auto) 0 0-0.2 10 ^3/uL Nucleated Red Blood Cells 0.1 % Sodium Level 143 136-145 mmol/L Potassium Level 2.9 L 3.5-5.1 mmol/L Chloride Level 112 H 98-107 mmol/L Carbon Dioxide Level 16 L 20-31 mmol/L Anion Gap 15 5-15 Blood Urea Nitrogen 11 9-23 mg/dL Creatinine 0.93 0.550-1.02 mg/dL Glomerular Filtration Rate Calc 70 >90 mL/min BUN/Creatinine Ratio 11.8 10.0-20.0 Serum Glucose 134 H 74-106 mg/dL Calcium Level 8.5 L 8.7-10.4 mg/dL Magnesium Level 2.0 1.6-2.6 mg/dL Total Bilirubin 0.3 0.2-1.0 mg/dL Aspartate Amino Transferase (AST) 249 H 13-40 U/L Alanine Aminotransferase (ALT) 136 H 7-40 U/L Alkaline Phosphatase 74 46-116 U/L Total Protein 6.8 5.7-8.2 g/dL Albumin 4.1 3.2-4.8 g/dL Plasma/Serum Blood Alcohol 69.0 H <10 mg/dL Assessment Atrial fibrillation with rapid ventricular response, newly diagnosed Rule out structural heart disease NSTEMI, likely type II Dyslipidemia Hypokalemia Transaminitis Alcohol abuse Marijuana use Tobacco use Obesity Plan/Recommendation We will continue with the following plan/recommendations (Dr. Pagan): * Transthoracic echocardiogram to evaluate cardiac function * ?[id number] VASc score:1 point HAS-BLED score: 1 point * Rate control with low-dose beta-kalani. D/C Cardizem drip * Initiate therapeutic Lovenox (once Head CT is done). Transition to DOAC prior to discharge * Hold antiarrhythmic agent given unknown duration of atrial fibrillation * Monitor and replete electrolytes as needed, keep potassium >4 and magnesium>2 * Initiate lipid-lowering agent * Close Cardiac surveillance Thank you for allowing us to care for this patient. Please call with any questions or concerns. Critical care time spent: 44 minutes This medical document was created using an electronic medical record system with voice recognition software and computerized dictation system. Although this document has been carefully reviewed, there might still be some phonetic and typographical errors. Occasional wrong-word or ``sound-alike substitutions may have occurred due to the inherent limitations of voice recognition software. These areas are purely typographical due to imperfections of the software programs and do not reflect any compromise in the patient's medical care. Please read the chart carefully and recognize, using context, where these substitutions have occurred. Plan discussed with: Patient, Other (Patient's granddaughter at bedside) NYHA Physical activity limitations: NA Date of Service: May 08, 2025 Billing Provider: YOBANY DELEON Cardiology Common Codes: [id number] INP/OBS CARE (High) Cardiology Consultation Codes: [id number] CONSULT <45MIN YOBANY DELEON May 08, 2025 10:50
[2025-05-08 13:39] LABS: Albumin 3.8 g/dL (3.2-4.8); Alkaline Phosphatase 73 U/L (46-116); Anion Gap 7 (5-15); BUN/Creatinine Ratio 12.0 (10.0-20.0); Blood Urea Nitrogen 10 mg/dL (9-23); Carbon Dioxide 22 mmol/L (20-31); Magnesium 2.1 mg/dL (1.6-2.6); Potassium 4.3 mmol/L (3.5-5.1); Sodium 141 mmol/L (136-145); Total Protein 6.4 g/dL (5.7-8.2)
[2025-05-08 13:40] LABS: Bilirubin, Total 0.4 mg/dL (0.2-1.0)
[2025-05-08 13:41] LABS: Alanine Aminotransferase 167 U/L (7-40); Calcium 8.4 mg/dL (8.7-10.4); Chloride 112 mmol/L (98-107); Glucose 108 mg/dL (74-106)
--- NOTE | 2025-05-08 13:58 | DVHPN2 ---
Subjective 60-year-old female with no past medical history came because of a possible syncopal episode witnessed by family associated with chest pain On presentation here she was found to be in atrial fibrillation with RVR and was started on Cardizem drip Currently she is off the Cardizem She denies pain right now Changes from previous H/P or p: Changes Objective Vitals Vital Signs Date Time Temp Pulse Resp B/P (MAP) Pulse Ox O2 Delivery O2 Flow Rate FiO2 05/08/25 12:00 64 05/08/25 08:21 92 Room Air* 0 21 05/08/25 08:20 23 104/66 (79) 05/08/25 06:27 98.7 98.7 Intake/Output Intake and Output 05/08/25 06:59 Intake Total 25 ml Balance 25 ml Intake IV Total 25 ml General Appearance: Alert, Oriented X3, Cooperative Lungs: Clear to auscultation, Normal air movement Cardiovascular: Regular rate, Normal S1, Normal S2 Abdomen: Normal bowel sounds, Soft, No tenderness Extremities: No edema Medications Current Medications Medications Dose Ordered Sig/Deacon Route Start Time Stop Time Status Last Admin Dose Admin Aspirin 162 mg DAILY PO 05/08/25 10:00 05/08/25 09:59 162 MG Atorvastatin Calcium 10 mg HS PO 05/08/25 22:00 Ondansetron HCl 4 mg Q4HP PRN IV 05/08/25 02:30 Enoxaparin Sodium 40 mg DAILY SC 05/08/25 10:00 05/08/25 10:00 40 MG Acetaminophen 650 mg Q6HP PRN PO 05/08/25 02:30 Nitroglycerin 0.4 mg Q5MINP PRN SL 05/08/25 02:30 Morphine Sulfate 2 mg Q30M PRN IV 05/08/25 02:30 Ceftriaxone Sodium 50 ml @ 100 mls/hr DAILY@09 IV 05/08/25 04:30 05/08/25 10:00 100 MLS/HR Laboratory Results Laboratory Tests 05/07/25 23:22 05/08/25 12:56 Chemistry Test 05/07/25 23:22 05/08/25 12:56 Albumin 4.1 g/dL (3.2-4.8) 3.8 g/dL (3.2-4.8) Calcium Level 8.5 mg/dL (8.7-10.4) L 8.4 mg/dL (8.7-10.4) L Magnesium Level 2.0 mg/dL (1.6-2.6) 2.1 mg/dL (1.6-2.6) Total Protein 6.8 g/dL (5.7-8.2) 6.4 g/dL (5.7-8.2) Lipid panel Test 05/08/25 02:15 Cholesterol Level 254 mg/dL (< 200) H HDL Cholesterol 63 mg/dL (40-59) H Triglycerides Level 116 mg/dL (< 150) Cardiac Markers Test 05/07/25 23:22 05/08/25 01:35 B-Type Natriuretic Peptide 206.33 pg/mL (0-100) 116.92 pg/mL (0-100) LFT Test 05/07/25 23:22 05/08/25 12:56 Alanine Aminotransferase (ALT) 136 U/L (7-40) H 167 U/L (7-40) H Alkaline Phosphatase 74 U/L (46-116) 73 U/L (46-116) Aspartate Amino Transferase (AST) 249 U/L (13-40) H 174 U/L (13-40) H Total Bilirubin 0.3 mg/dL (0.2-1.0) 0.4 mg/dL (0.2-1.0) HgA1c, TSH Test 05/08/25 02:15 05/08/25 12:56 Thyroid Stimulating Hormone (TSH) 1.63 uIU/mL (0.55-4.78) Hemoglobin A1c Pending Urinalysis Test 05/08/25 02:49 Urine Color Light-yellow (Yellow) Urine Clarity Turbid (Clear) H Urine pH 5.0 (5.0-9.0) Urine Specific [place] 1.021 (1.001-1.035) Urine Protein Negative (Negative) Urine Ketones Trace (Negative) Urine Blood Negative /uL (Negative) Urine Nitrite Negative (Negative) Urine Bilirubin Negative (Negative) Urine Urobilinogen Normal mg/dL (Negative) Urine Leukocyte Esterase 2+ /uL (Negative) Urine RBC None seen /hpf (0 - 4) Urine Microscopic WBC 4 /HPF (0-5) Urine Squamous Epithelial Cells Few /hpf (<5) Urine Bacteria None seen /hpf (None Seen) Urine Mucus Few (None Seen) Urine Glucose Normal mg/dL (Normal) Assessment/Plan Assessment/Plan New onset AFib with RVR NSTEMI, likely type II Dyslipidemia Hypokalemia Alcohol abuse Tobacco use UTI Plan IV Rocephin Aspirin Lipitor Lovenox Echocardiogram Cardiology consult CT scan of the head Full code Advance directives discussed for 18 minutes Plan discussed with: Patient Date of Service: May 08, 2025 Billing Provider: VIDYA ALLRED MD Common Visit Codes: [id number] INP/OBS CARE(HIGH) Secondary Visit Codes: [id number] CARE PLAN 30 MINUTES VIDYA ALLRED MD May 08, 2025 13:58
--- NOTE | 2025-05-08 14:13 | DVH ---
EXAM: CT HEAD WITHOUT CONTRAST INDICATION: syncopal episode with loss of consciousness, r/o CVA TECHNIQUE: CT of the head without intravenous contrast. Radiation Dose Information: CT Dose: CTDI volume is 60.79 mGy. Dose-length product is 1045.85 mGy*cm The dose indicators for CT are the volume Computed Tomography (CT) Dose Index (CTDIvol) and the Dose Length Product (DLP), and are measured in units of mGy and mGy-cm, respectively. These indicators are not patient dose, but values generated from the CT scanner acquisition factors. The report includes radiation exposure data for exposures received during this examination. COMPARISON: None FINDINGS: There is no evidence of acute intracranial hemorrhage, extra-axial collection, mass effect, midline s hift, herniation or hydrocephalus. The ventricles, sulci and cisterns are age appropriate. The thomas-white differentiation is intact. Patchy periventricular and subcortical white matter hypoattenuation is nonspecific but may be related to small vessel ischemic disease. The visualized paranasal sinuses and mastoid air cells are clear. The surrounding soft tissues and osseous structures are unremarkable. IMPRESSION: No acute intracranial abnormality.
[2025-05-08] MEDS: ACETAMINOPHEN 325 MG TAB PO PRN (15:45)
[2025-05-08 15:58] VITALS: BP 95/69; PULSE 65; RESP 16; TEMP 97.9; O2SAT 95
[2025-05-08 17:00] VITALS: BP 95/69; PULSE 65; RESP 17; TEMP 97.9; O2SAT 95
[2025-05-08 20:00] VITALS: PULSE 66; PULSE 79; RESP 18; O2SAT 95
[2025-05-08 21:00] VITALS: BP 97/58; PULSE 66; RESP 18; TEMP 99.1; O2SAT 95
[2025-05-08] MEDS ORDERED: ATORVASTATIN 20 MG TAB PO SCH (22:00)
[2025-05-08] MEDS: ATORVASTATIN 20 MG TAB PO SCH (22:00)
[2025-05-08] MEDS: METOPROLOL TARTRATE 25 MG TAB PO SCH (22:00)
[2025-05-08] MEDS: ENOXAPARIN SOD 120 MG/0.8 ML SYRINGE SC SCH (22:05)
[2025-05-09] VITALS (9 sets, daily range): BP systolic 97–122; BP diastolic 54–78; PULSE 61–87; RESP 12–20; TEMP 97.9–98.3; O2SAT 93–100
[2025-05-09 07:00] LABS: Potassium 4.4 mmol/L (3.5-5.1); Sodium 141 mmol/L (136-145)
[2025-05-09 07:01] LABS: Anion Gap 6 (5-15); Carbon Dioxide 24 mmol/L (20-31)
[2025-05-09 07:06] LABS: BUN/Creatinine Ratio 12.3 (10.0-20.0); Blood Urea Nitrogen 10 mg/dL (9-23); Glucose 87 mg/dL (74-106); Magnesium 2.2 mg/dL (1.6-2.6)
[2025-05-09 07:08] LABS: Hematocrit 40.7 % (36.0-46.0); Hemoglobin 14.0 g/dL (12.2-16.2); Mean Corpuscular Hemoglobin 32.5 pg (28.0-32.0); Mean Corpuscular Volume 94.5 fL (80.0-100.0); Nucleated Red Blood Cells % 0.1 %
[2025-05-09 07:12] LABS: Calcium 8.5 mg/dL (8.7-10.4); Chloride 111 mmol/L (98-107)
--- NOTE | 2025-05-09 11:44 | DVHPN2 ---
Subjective Denies any symptoms Heart rate 60-70 Echocardiogram still pending Changes from previous H/P or p: Changes Objective Vitals Vital Signs Date Time Temp Pulse Resp B/P (MAP) Pulse Ox O2 Delivery O2 Flow Rate FiO2 05/09/25 09:21 61 111/71 05/09/25 08:56 98.2 16 95 98.2 05/08/25 20:00 Room Air* 0 21 Intake/Output Intake and Output 05/09/25 07:00 Intake Total 550 ml Balance 550 ml Intake Oral 500 ml IV Total 50 ml # Voids 2 General Appearance: Alert, Oriented X3, Cooperative Lungs: Clear to auscultation, Normal air movement Cardiovascular: Regular rate, Normal S1, Normal S2 Abdomen: Normal bowel sounds, Soft, No tenderness Extremities: No edema Medications Current Medications Medications Dose Ordered Sig/Deacon Route Start Time Stop Time Status Last Admin Dose Admin Aspirin 162 mg DAILY PO 05/08/25 10:00 05/09/25 09:20 162 MG Ondansetron HCl 4 mg Q4HP PRN IV 05/08/25 02:30 Acetaminophen 650 mg Q6HP PRN PO 05/08/25 02:30 05/09/25 06:51 650 MG Nitroglycerin 0.4 mg Q5MINP PRN SL 05/08/25 02:30 Morphine Sulfate 2 mg Q30M PRN IV 05/08/25 02:30 Ceftriaxone Sodium 50 ml @ 100 mls/hr DAILY@09 IV 05/08/25 04:30 05/09/25 09:20 100 MLS/HR Enoxaparin Sodium 110 mg Q12HR SC 05/08/25 22:00 05/09/25 09:23 110 MG Metoprolol Tartrate 12.5 mg BID PO 05/08/25 22:00 05/09/25 09:21 12.5 MG Atorvastatin Calcium 40 mg HS PO 05/08/25 22:00 05/08/25 22:00 40 MG Laboratory Results Laboratory Tests 05/09/25 05:27 Chemistry Test 05/08/25 12:56 05/09/25 05:27 Albumin 3.8 g/dL (3.2-4.8) Calcium Level 8.4 mg/dL (8.7-10.4) L 8.5 mg/dL (8.7-10.4) L Magnesium Level 2.1 mg/dL (1.6-2.6) 2.2 mg/dL (1.6-2.6) Total Protein 6.4 g/dL (5.7-8.2) LFT Test 05/08/25 12:56 Alanine Aminotransferase (ALT) 167 U/L (7-40) H Alkaline Phosphatase 73 U/L (46-116) Aspartate Amino Transferase (AST) 174 U/L (13-40) H Total Bilirubin 0.4 mg/dL (0.2-1.0) HgA1c, TSH Test 05/08/25 12:56 Hemoglobin A1c 5.6 % A1C (<5.7) Urinalysis Test 05/08/25 02:49 Urine Color Light-yellow (Yellow) Urine Clarity Turbid (Clear) H Urine pH 5.0 (5.0-9.0) Urine Specific [place] 1.021 (1.001-1.035) Urine Protein Negative (Negative) Urine Ketones Trace (Negative) Urine Blood Negative /uL (Negative) Urine Nitrite Negative (Negative) Urine Bilirubin Negative (Negative) Urine Urobilinogen Normal mg/dL (Negative) Urine Leukocyte Esterase 2+ /uL (Negative) Urine RBC None seen /hpf (0 - 4) Urine Microscopic WBC 4 /HPF (0-5) Urine Squamous Epithelial Cells Few /hpf (<5) Urine Bacteria None seen /hpf (None Seen) Urine Mucus Few (None Seen) Urine Glucose Normal mg/dL (Normal) Assessment/Plan Assessment/Plan New onset AFib with RVR NSTEMI, likely type II Dyslipidemia Hypokalemia Alcohol abuse Tobacco use UTI Plan IV Rocephin Aspirin Lipitor Lovenox Echocardiogram Cardiology consult CT scan of the head Full code Advance directives discussed for 18 minutes 05/09/2025: Lovenox, switched to Eliquis Echocardiogram is pending Metoprolol Rocephin for UTI Aspirin Lipitor Plan discussed with: Patient My Orders Orders - VIDYA ALLRED MD Procedure Category Date Status Time Code Status CODE 05/08/25 Transmitted 13:57 Enoxaparin Sodium PHA 05/08/25 In Process (Lovenox) 22:00 Date of Service: May 09, 2025 Billing Provider: VIDYA ALLRED MD Common Visit Codes: [id number] INP/OBS CARE(HIGH) VIDYA ALLRED MD May 09, 2025 11:44
--- NOTE | 2025-05-09 14:15 | ECG ---
[facility] Test Date: 2025-05-07 Test Time: 23:59:50 Pat Name: REX HERNANDEZ Department: Room: 0214T A Gender: F Sizing Sprayer: LENNY : 1965 Requested By: MARQUIS SPENCER Order Number: [id number] Reading MD: Jaun Pagan Measurements Intervals [place] Rate: 131 P: 0 AK: 0 QRS: 25 QRSD: 87 T: 260 QT: 304 QTc: 449 Interpretive Statements Atrial fibrillation LVH with secondary repolarization abnormality ST depression, consider ischemia, diffuse lds Electronically Signed On 05-14-2025 19:06:32 PDT by Jaun Pagan Please click the below link to view image of tracing.
--- NOTE | 2025-05-09 16:51 | DVHSR ---
APPROVED REPORT EXAM: Two-dimensional and M-mode echocardiogram with Doppler, color Doppler and Bubble Study. Blood Pressure: 95/66 mmHg INDICATION Afib RISK FACTORS Obesity: Height: 5' 6", Weight: 240 DIMENSIONS LVDd4.7 (3.8-5.7cm)LA (2D)4.5 (1.9-4.0cm)Aortic Root3.0 (2.0-3.7cm) LVDs2.9 (2.5-4.0cm)LA (MM) (1.9-4.0cm)Aortic Cusp Exc1.1 (1.5-2.0cm) EF (%) 70.0 (55-70%)Rt. Atrium4.3 (1.9-4.0cm)Asc. Aorta cm IVSd1.4 (0.7-1.1cm)RV (D) (1.8-2.4cm) PWd1.2 (0.7-1.1cm) Mitral Valve MitralMitral Stenosis E wave1.30m/sMV Mean GR.mmHg E/A ratio0.02D MVAcm2 Aortic Valve Aortic ValveAortic Stenosis V10.70m/Cindi Mean GR.80mmHg V25.90m/Cindi Peak GR.140mmHg LVOT Diameter2.1 (1.8-2.4cm)Doppler AVA0.41cm2 AI P 1/2 [id number] Pulmonic Valve V20.70m/s Tricuspid Valve TR Velocity2.80m/s [id number] Other Information Quality : Rhythm : Atrial Fibrillation Conclusion Technically difficult study. Difficult acoustic windows. Undetermined rhythm. Left atrial enlargement. Aortic root enlargement. Concentric LVH. Notable thickening of the aortic leaflets with moderate calcification. Diminished excursion. Mild m itral annular calcification. Difficult to see in the sexual views. The tricuspid and pulmonic or st ructurally normal. Left ventricular function is preserved. EF is approximately 65% with normal RV function. Doppler reveals severe aortic stenosis. Peak gradient of 140 mmHg with a mean gradient of 80 mmHg. Moderate tricuspid regurgitation. No pericardial effusion masses or vegetations discernible.
--- NOTE | 2025-05-09 17:27 | DVHPN2 ---
Consult Progress Note Subjective Other Systems: Denies any cardiac symptoms at time of assessment Objective vital signs Vital Sign Date Time Temp Pulse Resp B/P (MAP) Pulse Ox O2 Delivery O2 Flow Rate FiO2 05/09/25 17:00 98.3 69 12 122/72 (89) 97 98.3 05/09/25 08:00 Room Air* 0 21 Total Intake and Output 05/08/25 05/08/25 05/09/25 15:00 23:00 07:00 Intake Total 50 ml 100 ml 400 ml Balance 50 ml 100 ml 400 ml medications Current Medications Medications Dose Ordered Sig/Deacon Route Start Time Stop Time Status Last Admin Dose Admin Aspirin 162 mg DAILY PO 05/08/25 10:00 05/09/25 09:20 162 MG Ondansetron HCl 4 mg Q4HP PRN IV 05/08/25 02:30 Acetaminophen 650 mg Q6HP PRN PO 05/08/25 02:30 05/09/25 06:51 650 MG Nitroglycerin 0.4 mg Q5MINP PRN SL 05/08/25 02:30 Morphine Sulfate 2 mg Q30M PRN IV 05/08/25 02:30 Ceftriaxone Sodium 50 ml @ 100 mls/hr DAILY@09 IV 05/08/25 04:30 05/09/25 09:20 100 MLS/HR Enoxaparin Sodium 110 mg Q12HR SC 05/08/25 22:00 05/09/25 09:23 110 MG Metoprolol Tartrate 12.5 mg BID PO 05/08/25 22:00 05/09/25 09:21 12.5 MG Atorvastatin Calcium 40 mg HS PO 05/08/25 22:00 05/08/25 22:00 40 MG Examination: GENERAL:Normal, LUNGS:Normal, CVS:Abnormal (Systolic murmur), NEURO:Normal laboratory and microbiology Laboratory Tests 05/09/25 05:27 Test 05/09/25 05:27 Range/Units Serum Glucose 87 74-106 mg/dL Problem List/Assessment/Plan Problem List/Assessment/Plan Atrial fibrillation with rapid ventricular response, now NSR Severe aortic valve stenosis NSTEMI, likely type II Moderate tricuspid regurgitation Dyslipidemia Hypokalemia, resolved Transaminitis Alcohol abuse Marijuana use Tobacco use Obesity Plan/Recommendations (Dr. Pagan): * Transthoracic echocardiogram reveals EF 65% * [id number] VASc score:1 point HAS-BLED score: 1 point * Rate control with low-dose beta-kalani. * Continue therapeutic Lovenox . Transition to DOAC prior to discharge * Monitor and replete electrolytes as needed, keep potassium >4 and magnesium>2 * Continue lipid-lowering agent * Close Cardiac surveillance Echocardiogram results were reviewed with academic support coordinator . Results significant for severe aortic stenosis with a peak gradient of 140 mmHg and a mean gradient of 80 mmHg. The patient may benefit from a coronary angiogram with left and right heart catheterization. The procedure was discussed with the patient in full detail including risks and benefits. Risks include but are not limited to bleeding, contrast-induced nephropathy, coronary dissection, stroke, and even . The patient understands and is agreeable to undergo the procedure. We will schedule the patient at soonest availability on 05/10/2025. Thank you for allowing us to care for this patient. Please call with any questions or concerns. This medical document was created using an electronic medical record system with voice recognition software and computerized dictation system. Although this document has been carefully reviewed, there might still be some phonetic and typographical errors. Occasional wrong-word or ``sound-alike substitutions may have occurred due to the inherent limitations of voice recognition software. These areas are purely typographical due to imperfections of the software programs and do not reflect any compromise in the patient's medical care. Please read the chart carefully and recognize, using context, where these substitutions have occurred. Plan discussed with: Patient Date of Service: May 09, 2025 Billing Provider: YOBANY DLEEON Common Visit Codes: [id number] INP/OBS CARE(HIGH) YOBANY DELEON May 09, 2025 17:27
[2025-05-10] VITALS (10 sets, daily range): BP systolic 122–158; BP diastolic 70–88; PULSE 52–78; RESP 12–20; TEMP 98.1–98.3; O2SAT 91–97
[2025-05-10 06:09] LABS: Hematocrit 40.4 % (36.0-46.0); Hemoglobin 13.9 g/dL (12.2-16.2); Mean Corpuscular Hemoglobin 32.8 pg (28.0-32.0); Mean Corpuscular Volume 95.0 fL (80.0-100.0); Nucleated Red Blood Cells % 0.1 %
[2025-05-10 06:24] LABS: INR 1.02 (0.9-1.15); Partial Thromboplastin Time 33.3 SEC (24.5-34.5); Prothrombin Time 10.8 sec (9.3-11.8)
[2025-05-10 06:29] LABS: Potassium 4.2 mmol/L (3.5-5.1); Sodium 141 mmol/L (136-145)
[2025-05-10 06:30] LABS: Anion Gap 7 (5-15); Carbon Dioxide 25 mmol/L (20-31)
[2025-05-10 06:32] LABS: Calcium 8.6 mg/dL (8.7-10.4); Chloride 109 mmol/L (98-107)
[2025-05-10 06:35] LABS: BUN/Creatinine Ratio 10.8 (10.0-20.0); Blood Urea Nitrogen 9 mg/dL (9-23); Glucose 90 mg/dL (74-106)
--- NOTE | 2025-05-10 11:07 | DVHPN2 ---
Subjective No new complaints Echocardiogram showed severe aortic stenosis and therefore she is scheduled for heart catheterization today Changes from previous H/P or p: Changes Objective Vitals Vital Signs Date Time Temp Pulse Resp B/P (MAP) Pulse Ox O2 Delivery O2 Flow Rate FiO2 05/10/25 09:00 98.3 63 17 122/74 (90) 94 98.3 05/10/25 08:00 Room Air* 0 21 Intake/Output Intake and Output 05/10/25 07:00 Intake Total 600 ml Balance 600 ml Intake Oral 600 ml # Voids 9 # Bowel Movements 1 General Appearance: Alert, Oriented X3, Cooperative Lungs: Clear to auscultation, Normal air movement Cardiovascular: Regular rate, Normal S1, Normal S2 Abdomen: Normal bowel sounds, Soft, No tenderness Extremities: No edema Medications Current Medications Medications Dose Ordered Sig/Deacon Route Start Time Stop Time Status Last Admin Dose Admin Aspirin 162 mg DAILY PO 05/08/25 10:00 05/09/25 09:20 162 MG Ondansetron HCl 4 mg Q4HP PRN IV 05/08/25 02:30 Acetaminophen 650 mg Q6HP PRN PO 05/08/25 02:30 05/09/25 06:51 650 MG Nitroglycerin 0.4 mg Q5MINP PRN SL 05/08/25 02:30 Morphine Sulfate 2 mg Q30M PRN IV 05/08/25 02:30 Ceftriaxone Sodium 50 ml @ 100 mls/hr DAILY@09 IV 05/08/25 04:30 05/10/25 09:15 100 MLS/HR Metoprolol Tartrate 12.5 mg BID PO 05/08/25 22:00 05/09/25 09:21 12.5 MG Atorvastatin Calcium 40 mg HS PO 05/08/25 22:00 05/09/25 22:21 40 MG Laboratory Results Laboratory Tests 05/10/25 05:17 Chemistry Test 05/10/25 05:17 Calcium Level 8.6 mg/dL (8.7-10.4) L Coagulation Test 05/10/25 05:17 Prothrombin Time 10.8 sec (9.3-11.8) Prothrombin Time INR 1.02 (0.9-1.15) Activated Partial Thromboplast Time 33.3 SEC (24.5-34.5) Urinalysis Test 05/08/25 02:49 Urine Color Light-yellow (Yellow) Urine Clarity Turbid (Clear) H Urine pH 5.0 (5.0-9.0) Urine Specific [place] 1.021 (1.001-1.035) Urine Protein Negative (Negative) Urine Ketones Trace (Negative) Urine Blood Negative /uL (Negative) Urine Nitrite Negative (Negative) Urine Bilirubin Negative (Negative) Urine Urobilinogen Normal mg/dL (Negative) Urine Leukocyte Esterase 2+ /uL (Negative) Urine RBC None seen /hpf (0 - 4) Urine Microscopic WBC 4 /HPF (0-5) Urine Squamous Epithelial Cells Few /hpf (<5) Urine Bacteria None seen /hpf (None Seen) Urine Mucus Few (None Seen) Urine Glucose Normal mg/dL (Normal) Microbiology Microbiology Date/Time Source Procedure Growth Status 05/08/25 16:50 Blood Blood Culture - Preliminary NO GROWTH AFTER 24 HOURS OF INCUBATION. Resulted Assessment/Plan Assessment/Plan New onset AFib with RVR NSTEMI, likely type II Dyslipidemia Hypokalemia Alcohol abuse Tobacco use UTI Plan IV Rocephin Aspirin Lipitor Lovenox Echocardiogram Cardiology consult CT scan of the head Full code Advance directives discussed for 18 minutes 05/09/2025: Lovenox, switched to Eliquis Echocardiogram is pending Metoprolol Rocephin for UTI Aspirin Lipitor 05/10/2025: Heart catheterization today Echocardiogram showed severe aortic stenosis We will switch to Eliquis once she is done with workup , Lovenox for now Rocephin for UTI Monitor closely Plan discussed with: Patient Date of Service: May 10, 2025 Billing Provider: VIDYA ALLRED MD Common Visit Codes: [id number] INP/OBS CARE(HIGH) VIDYA ALLRED MD May 10, 2025 11:07
[2025-05-10] MEDS: IODIXANOL 320MG/ML 100ML BTL IV ONE (11:50)
[2025-05-10] MEDS: ANGIOMAX 250 MG VIAL IV ONE (12:18)
[2025-05-10] MEDS: VERAPAMIL 2.5MG/ML INJ 2ML VIAL IV ONE (12:19)
[2025-05-10] MEDS: HEPARIN SODIUM (PORCINE) 5000 UNITS/ML 1ML VIAL ONE (12:19)
[2025-05-10] MEDS: fentaNYL CITRATE 100 MCG/2 ML VL ONE (12:19)
[2025-05-10] MEDS: SODIUM CHL 0.9% 0 ML ONE (12:20)
[2025-05-10] MEDS: MIDAZOLAM HCL 2MG/2ML 2ml VIAL (1mg/ml) ONE (12:20)
[2025-05-10] MEDS: LIDOCAINE 2%HCL (LOCAL ANESTH.) INJ 20ML MDV ONE (12:20)
--- NOTE | 2025-05-10 16:09 | DVHOP2 ---
Operative Report - 2 Report Details Date: 05/10/25 Preop Diagnosis: Aortic stenosis Postop Diagnosis: Severe aortic stenosis Surgeon: Aleksandra Pagan MD Anesthesiologist: Conscious sedation Anesthesia: Mac, Local Consent: The patient was informed of the risks and benefits of the procedure. These include but are not limited to complications of anesthesia, postoperative infection, incomplete relief of symptoms, recurrence of symptoms, damage to blood vessels, nerves and tendons, deep venous thrombosis, pulmonary embolism and possible need for repeat surgery in the future. Complications: No complications Findings: Severe aortic stenosis Indications for Surgery: Syncope, chest pain, severe aortic stenosis Name of Procedure Performed Right and left heart catheterization bilateral cine coronary angiography. Left ventriculography. Procedure Details Procedure Details: Prior local anesthesia with 2% lidocaine to the right brachial area and right radial area and ovary pre-existing angio catheterization a wire was placed into the brachial vein and a slim catheter inserted. Similarly a radial artery was cannulated with a slim catheter and a multipurpose catheter was then used to cannulate the left ventricle both right and left coronary ostia without complications. The venous sheath we placed a [place] catheter and advanced it into the right atrium right ventricle pulmonary artery capillary wedge pressure positions where pressures were obtained and recorded. Cardiac outputs were determined by the thermodilution technique in triplicate. We did not acquire O2 saturations Hemodynamics: Right atrial pressure was 12 with a right ventricular pressure of 37/12. Pulmonary artery pressure was 41 over 20 with a mean of 28. Capillary wedge pressure was approximately 20. Aortic blood pressure was 111/77 left ventricular pressure was 228 or 18-20. Aortic valve area was calculated at 0.42 cm2. There was a gradient than 105 mm gradient across the aortic valve. A cardiac output of 4.4 L/min with an index of 1.9. Coronary anatomy: The RCA is a large vessel it is normal in its proximal mid and distal segments. PDA and posterolateral branches are normal. Left main is large and normal. Left anterior descending is a large normal vessel it is normal in its proximal mid and distal segments. Diagonals and major vessels are free of significant disease. The circumflex is a large vessel with two obtuse marginals free of significant disease. Ventriculography in the MARR position showed gradient 60% Impression: Elevated left ventricular end-diastolic pressure at rest. Normal ejection fraction. No significant CAD. Critical aortic stenosis. Recommendations the patient will be referred for TAVR. Dr. Torin Jesus has ac cepted this patient [facility]. Condition Good Disposition Acute Care Facility Date of Service: May 10, 2025 Billing Provider: ALEKSANDRA PAGAN Sr., MD Cardiology Common Codes: [id number] INP/OBS CARE (High) Cardiology Procedure Codes: [id number] HEART CATH CALI 02SAT, [id number] HEART CATH W/INTRA INJ ALEKSANDRA PAGAN Sr., MD May 10, 2025 16:09
--- NOTE | 2025-05-10 19:23 | DVHDS2 ---
Discharge Summary Date of Admission May 08, 2025 at 02:25 Date of Discharge: May 10, 2025 Labs/Diagnostic Data: Laboratory Results Test 05/10/25 05:17 05/09/25 05:27 05/08/25 12:56 05/08/25 02:49 White Blood Count 5.7 10^3/uL (4.4-10.8) Red Blood Count 4.25 10^6/uL (4.0-5.20) Hemoglobin 13.9 g/dL (12.2-16.2) Hematocrit 40.4 % (36.0-46.0) Mean Corpuscular Volume 95.0 fL (80.0-100.0) Mean Corpuscular Hemoglobin 32.8 pg (28.0-32.0) Mean Corpuscular Hemoglobin Concent 34.5 g/dL (32.0-36.0) Red Cell Distribution Width 14.4 % (11.8-14.3) Platelet Count 134 10^3/uL (140-450) Mean Platelet Volume 11.2 fL (6.9-10.8) Neutrophils (%) (Auto) 45.8 % (37.0-80.0) Lymphocytes (%) (Auto) 41.6 % (10.0-50.0) Monocytes (%) (Auto) 7.5 % (0.0-12.0) Eosinophils (%) (Auto) 4.3 % (0.0-7.0) Basophils (%) (Auto) 0.8 % (0.0-2.0) Neutrophils # (Auto) 2.6 10 ^3/uL (1.6-8.6) Lymphocytes # (Auto) 2.4 10 ^3/uL (0.4-5.4) Monocytes # (Auto) 0.4 10 ^3/uL (0-1.3) Eosinophils # (Auto) 0.2 10 ^3/uL (0-0.8) Basophils # (Auto) 0 10 ^3/uL (0-0.2) Nucleated Red Blood Cells 0.1 % Prothrombin Time 10.8 sec (9.3-11.8) Prothrombin Time INR 1.02 (0.9-1.15) Activated Partial Thromboplast Time 33.3 SEC (24.5-34.5) Sodium Level 141 mmol/L (136-145) Potassium Level 4.2 mmol/L (3.5-5.1) Chloride Level 109 mmol/L (98-107) Carbon Dioxide Level 25 mmol/L (20-31) Anion Gap 7 (5-15) Blood Urea Nitrogen 9 mg/dL (9-23) Creatinine 0.83 mg/dL (0.550-1.02) Glomerular Filtration Rate Calc 81 mL/min (>90) BUN/Creatinine Ratio 10.8 (10.0-20.0) Serum Glucose 90 mg/dL (74-106) Calcium Level 8.6 mg/dL (8.7-10.4) Magnesium Level 2.2 mg/dL (1.6-2.6) Hemoglobin A1c 5.6 % A1C (<5.7) Total Bilirubin 0.4 mg/dL (0.2-1.0) Aspartate Amino Transferase (AST) 174 U/L (13-40) Alanine Aminotransferase (ALT) 167 U/L (7-40) Alkaline Phosphatase 73 U/L (46-116) Total Protein 6.4 g/dL (5.7-8.2) Albumin 3.8 g/dL (3.2-4.8) Urine Color Light-yellow (Yellow) Urine Clarity Turbid (Clear) Urine pH 5.0 (5.0-9.0) Urine Specific Silva 1.021 (1.001-1.035) Urine Protein Negative (Negative) Urine Ketones Trace (Negative) Urine Blood Negative /uL (Negative) Urine Nitrite Negative (Negative) Urine Bilirubin Negative (Negative) Urine Urobilinogen Normal mg/dL (Negative) Urine Leukocyte Esterase 2+ /uL (Negative) Urine RBC None seen /hpf (0 - 4) Urine Microscopic WBC 4 /HPF (0-5) Urine Squamous Epithelial Cells Few /hpf (<5) Urine Bacteria None seen /hpf (None Seen) Urine Mucus Few (None Seen) Urine Glucose Normal mg/dL (Normal) Urine Opiates Screen Neg (NEGATIVE) Urine Fentanyl Screen Neg (NEGATIVE) Urine Barbiturates Screen Neg (NEGATIVE) Urine Phencyclidine Screen Neg (NEGATIVE) Urine Amphetamines Screen Neg (NEGATIVE) Urine Benzodiazepines Screen Neg (NEGATIVE) Urine Cocaine Screen Neg (NEGATIVE) Urine Cannabinoids Screen Pos (NEGATIVE) Test 05/08/25 02:15 05/08/25 01:35 05/08/25 01:23 9/9/25 23:22 Troponin I High Sensitivity 478 ng/L (</=34) Triglycerides Level 116 mg/dL (< 150) Cholesterol Level 254 mg/dL (< 200) LDL Cholesterol 170 mg/dL (< 100) HDL Cholesterol 63 mg/dL (40-59) Thyroid Stimulating Hormone (TSH) 1.63 uIU/mL (0.55-4.78) B-Type Natriuretic Peptide 116.92 pg/mL (0-100) Lactic Acid Level 5.0 mmol/L (0.4-2.0) Plasma/Serum Blood Alcohol 69.0 mg/dL (<10) Other Laboratory Tests 05/10/25 05:17 Brief Hx & Hospital Course: Final diagnoses: Severe aortic stenosis New onset AFib with RVR NSTEMI, likely type II Dyslipidemia Hypokalemia Alcohol abuse Tobacco use UTI 60 year old female was admitted for chest pain and afib RVR She was given cardizem drip to control her HR Cardiology recommended an Echo It showed severe Heart cath done today showed no CAD She was advised to get TAVR She will be transferred to [facility] Stable for transfer Condition at Discharge: Stable Final Diagnosis/Problems List Severe aortic stenosis Atrial fibrillation with RVR Discharge Disposition: Acute Care Facility SNF Discharge Will this Physician continue t: No Discharge Instruct/Medications Diet: Cardiac 2g Na,low cholest Activity: No Restrictions, As Tolerated Follow Up/Referral: [facility] Medications: See Med Rec Discharge Statement: "Patient was advised to return to the ER or call 911 if any headaches, dizziness, shortness of breath, chest pain, abdominal pain, bleeding, fevers, or worsening of medical condition. Patient was counseled about treatment plan, medications, possible side effects, patientverbalized understanding. All questions were answered to the best of my ability. This discharge took greater then 30 minutes in planning, reviewing documentation, counseling the patient, and discussing with other team members." ASSESSMENT ASSESSMENT Assessment Severe aortic stenosis Atrial fibrillation with RVR Date of Service: May 10, 2025 Billing Provider: VIDYA ALLRED MD Common Visit Codes: 52380-KDD/OBS DISCH DAY >30min VIDYA ALLRED MD May 10, 2025 19:23
== END 2025-05-10 22:00 | disposition short-term general hospital (02) | DRG 192 ==
LOC: EDBD 22:58 → ER 22:58 → OVERFLOW 05-08 02:25 → TELE-CENTR 05-08 14:56
PROVIDERS: ADMIT Internal Medicine Geriatric Medicine; ATTEND Internal Medicine Geriatric Medicine
PROC: 4A023N8 Measurement of Cardiac Sampling and Pressure, Bilateral, Percutaneous Approach (ICD-10-PCS; principal; 2025-05-10)
PROC: B211YZZ Fluoroscopy of Multiple Coronary Arteries using Other Contrast (ICD-10-PCS; 2025-05-10)
PROC: B215YZZ Fluoroscopy of Left Heart using Other Contrast (ICD-10-PCS; 2025-05-10)
DX: I48.91 Unspecified atrial fibrillation (principal); I21.A1 Myocardial infarction type 2; I35.0 Nonrheumatic aortic (valve) stenosis; E66.9 Obesity, unspecified; E78.5 Hyperlipidemia, unspecified; E87.6 Hypokalemia; F10.129 Alcohol abuse with intoxication, unspecified; N39.0 Urinary tract infection, site not specified; F12.90 Cannabis use, unspecified, uncomplicated; Z90.721 Acquired absence of ovaries, unilateral; R74.01 Elevation of levels of liver transaminase levels; Z68.38 Body mass index [BMI] 38.0-38.9, adult; Z72.0 Tobacco use; I07.1 Rheumatic tricuspid insufficiency
CPT/HCPCS: 36415; 70450; 71045; 80048; 80053; 80061; 80307; 80320; 81001; 83036; 83605; 83735; 83880; 84443; 84484; 85025; 85610; 85730; 87040; 93005; 93306; 93460; 96361; 96374; 99152; 99291; G0378; J2250; J2405; Q9967

== ENCOUNTER 2025-05-19 21:56 | Emergency (ER) | payer MEDICAID ==
[~2025-05-19] VITALS: Ht 195.6 cm; Wt 104.5 kg
[2025-05-19 22:05] VITALS: BP 117/58; PULSE 73; RESP 16; TEMP 98.8; O2SAT 92
== END 2025-05-19 22:47 | disposition left against medical advice (07) ==
LOC: ER 21:56
DX: Z48.00 Encounter for change or removal of nonsurgical wound dressing (principal); Z53.21 Procedure and treatment not carried out due to patient leaving prior to being seen by health care provider